=== PATIENT | female | born 1995 | race Asian ===

== ENCOUNTER 2022-03-15 13:12 | Emergency (ER) | payer MEDICAID ==
[~2022-03-15] VITALS: Ht 160 cm; Wt 72.3 kg
[2022-03-15] MEDS ORDERED: HYDROCODONE/ACETAMINOPHEN 5-325 MG TABLET PO ONE (13:30)
[2022-03-15 15:34] VITALS: BP 126/69
== END 2022-03-15 15:41 | disposition home or self-care (01) ==
LOC: EMS 13:12
DX: S62.522A Displaced fracture of distal phalanx of left thumb, initial encounter for closed fracture (principal); W23.0XXA Caught, crushed, jammed, or pinched between moving objects, initial encounter; Y93.89 Activity, other specified; Y92.89 Other specified places as the place of occurrence of the external cause; Y99.8 Other external cause status
CPT/HCPCS: 99283

== ENCOUNTER 2022-12-28 00:33 | Emergency (ER) | payer MEDICAID ==
[~2022-12-28] VITALS: Ht 160 cm; Wt 70.0 kg
[2022-12-28] MEDS ORDERED: OxyCODONE HCL/ACETAMINOPHEN 5-325 MG TABLET PO ONE (01:30)
[2022-12-28] MEDS ORDERED: TRAM-559 PO (02:38)
[2022-12-28 03:00] VITALS: BP 132/77
== END 2022-12-28 03:27 | disposition home or self-care (01) ==
LOC: EMS 00:34
DX: S93.402A Sprain of unspecified ligament of left ankle, initial encounter (principal); W01.0XXA Fall on same level from slipping, tripping and stumbling without subsequent striking against object, initial encounter; Y93.89 Activity, other specified; Y92.89 Other specified places as the place of occurrence of the external cause; Y99.8 Other external cause status
CPT/HCPCS: 29515; 99283

== ENCOUNTER 2023-09-23 16:35 | Emergency (ER) | payer MEDICAID ==
[~2023-09-23] VITALS: Ht 160 cm; Wt 77.3 kg
[~2023-09-23 16:35] MED LIST: TRAM-559 PO
[2023-09-23 16:57] VITALS: BP 134/71; PULSE 112; RESP 18; TEMP 98.1
== END 2023-09-23 20:33 | disposition home or self-care (01) ==
LOC: EMS 16:43
DX: S63.91XA Sprain of unspecified part of right wrist and hand, initial encounter (principal); X58.XXXA Exposure to other specified factors, initial encounter; Y93.89 Activity, other specified; Y92.89 Other specified places as the place of occurrence of the external cause; Y99.8 Other external cause status
CPT/HCPCS: 99283

== ENCOUNTER 2024-11-02 20:23 | Emergency (ER) | payer MEDICAID, OTHER ==
[~2024-11-02] VITALS: Ht 160 cm; Wt 70.0 kg
[~2024-11-02 20:23] MED LIST changes: -TRAM-559 PO; +TRAM50TA5 PO
[2024-11-02 20:36] VITALS: TEMP 97.9
[2024-11-03] MEDS: IBUPROFEN 400 MG TABLET PO ONE (01:16)
[2024-11-03] MEDS: ACETAMINOPHEN 325 MG TABLET PO ONE (01:16)
[2024-11-03] MEDS ORDERED: AMOX-457 PO (01:44)
[2024-11-03 01:45] VITALS: BP 122/80; PULSE 89; RESP 16; O2SAT 98
[2024-11-03] MEDS: AMOX TR/POT CLAV 875 MG/125 MG TABLET PO ONE (01:53)
== END 2024-11-03 01:57 | disposition home or self-care (01) ==
LOC: EMS 20:23
DX: H60.93 Unspecified otitis externa, bilateral (principal)
CPT/HCPCS: 99284; Z7502; Z7610